=== PATIENT | male | born 1950 | race Caucasian/White ===

== ENCOUNTER → 2016-12-29 | Outpatient (CLI) | payer MEDICARE, OTHER ==
[~2016-12-29] MED LIST: ATEN25 PO; CIPR-279 PO; HEPARIN SODIUM 1000 UNITS/NS 0 ML ONE; IOHEXOL 180 MG/ML 20 ML VIAL ONE; LIDOCAINE HCL/PF 1% 30 ML VIAL ONE; RIVA20TA PO; TAMS-1 PO
== END | disposition home or self-care (01) ==
LOC: RADMN 12:27
PROVIDERS: ATTEND Radiology Diagnostic Radiology
DX: Z46.6 Encounter for fitting and adjustment of urinary device (principal); N30.91 Cystitis, unspecified with hematuria; C67.9 Malignant neoplasm of bladder, unspecified; R93.41 Abnormal radiologic findings on diagnostic imaging of renal pelvis, ureter, or bladder
CPT/HCPCS: 75984; Q9965; 74430; J1644; J3490

== ENCOUNTER → 2017-02-02 | Outpatient (CLI) | payer MEDICARE, OTHER ==
[~2017-02-02] MED LIST changes: -HEPARIN SODIUM 1000 UNITS/NS 0 ML ONE; -IOHEXOL 180 MG/ML 20 ML VIAL ONE; -LIDOCAINE HCL/PF 1% 30 ML VIAL ONE
== END | disposition home or self-care (01) ==
LOC: RADMN 11:25
PROVIDERS: ATTEND Radiology Diagnostic Radiology
DX: Z46.6 Encounter for fitting and adjustment of urinary device (principal); R93.41 Abnormal radiologic findings on diagnostic imaging of renal pelvis, ureter, or bladder
CPT/HCPCS: 75984; C1769